=== PATIENT | male | born 1995 | race Two or more races ===

== ENCOUNTER 2018-03-21 16:16 | Emergency (ER) | payer MEDICAID ==
[~2018-03-21] VITALS: Ht 180.3 cm; Wt 81.6 kg
[2018-03-21 18:56] VITALS: BP 134/87
[2018-03-21] MEDS ORDERED: cefTRIAXone SOD 1,000 MG VL IM ONE (19:30)
== END 2018-03-21 19:25 | disposition home or self-care (01) ==
LOC: ER 16:16
DX: H66.42 Suppurative otitis media, unspecified, left ear (principal)

== ENCOUNTER 2018-03-26 10:33 | Emergency (ER) | payer OTHER, MEDICAID ==
[~2018-03-26] VITALS: Ht 177.8 cm; Wt 81.6 kg
[2018-03-26 10:44] VITALS: BP 131/81
[2018-03-26] MEDS ORDERED: LIDOCAINE 1% HCL (LOCAL ANESTH.) INJ 20ML MDV ID ONE (13:00)
== END 2018-03-26 13:42 | disposition home or self-care (01) ==
LOC: ER 10:33
DX: H60.02 Abscess of left external ear (principal)
CPT/HCPCS: 69000; 99283; J2001

== ENCOUNTER 2018-03-28 07:31 | Emergency (ER) | payer OTHER, MEDICAID ==
[~2018-03-28] VITALS: Ht 177.8 cm; Wt 81.6 kg
[2018-03-28 07:37] VITALS: BP 122/72
== END 2018-03-28 10:11 | disposition home or self-care (01) ==
LOC: ER 07:31
DX: H66.42 Suppurative otitis media, unspecified, left ear (principal); Z48.01 Encounter for change or removal of surgical wound dressing

== ENCOUNTER 2018-12-31 18:34 | Emergency (ER) | payer MEDICAID ==
[~2018-12-31] VITALS: Ht 177.8 cm; Wt 83.9 kg
[2018-12-31 18:47] VITALS: BP 140/76
[2018-12-31] MEDS ORDERED: LIDOCAINE 1% HCL (LOCAL ANESTH.) INJ 20ML MDV ONE (20:10)
[2018-12-31] MEDS ORDERED: LIDOCAINE 1% HCL (LOCAL ANESTH.) INJ 20ML MDV IJ ONE (20:15)
== END 2019-01-01 02:32 | disposition home or self-care (01) ==
LOC: ER 18:40
DX: L72.8 Other follicular cysts of the skin and subcutaneous tissue (principal)
CPT/HCPCS: 10060; 99283; J2001

== ENCOUNTER 2019-01-06 10:30 | Emergency (ER) | payer MEDICAID ==
[~2019-01-06] VITALS: Ht 177.8 cm; Wt 86.2 kg
[2019-01-06 10:35] VITALS: BP 128/74
[2019-01-06] MEDS ORDERED: BACITRACIN TOP OINT 1 UD PKG TOP ONE (11:30)
[2019-01-06] MEDS ORDERED: LIDOCAINE 1% (LOCAL ANESTH.) PF 5ml SDV ID ONE (11:30)
== END 2019-01-06 12:23 | disposition home or self-care (01) ==
LOC: ER 10:30
DX: S01.312A Laceration without foreign body of left ear, initial encounter (principal); Z48.02 Encounter for removal of sutures; W45.8XXA Other foreign body or object entering through skin, initial encounter; Y93.89 Activity, other specified; Y92.89 Other specified places as the place of occurrence of the external cause; Y99.8 Other external cause status

== ENCOUNTER 2019-01-17 09:33 | Emergency (ER) | payer MEDICAID ==
[~2019-01-17] VITALS: Ht 177.8 cm; Wt 88.5 kg
[2019-01-17 09:52] VITALS: BP 133/73
== END 2019-01-17 10:16 | disposition home or self-care (01) ==
LOC: ER 09:33
DX: S01.312D Laceration without foreign body of left ear, subsequent encounter (principal); Z48.02 Encounter for removal of sutures; X58.XXXD Exposure to other specified factors, subsequent encounter

== ENCOUNTER 2019-08-12 08:27 | Emergency (ER) | payer MEDICAID ==
[~2019-08-12] VITALS: Ht 177.8 cm; Wt 86.2 kg
[2019-08-12 08:44] VITALS: BP 138/86
== END 2019-08-12 09:28 | disposition home or self-care (01) ==
LOC: ER 08:27
DX: Q18.1 Preauricular sinus and cyst (principal)

== ENCOUNTER 2019-08-20 08:48 | Emergency (ER) | payer MEDICAID ==
[~2019-08-20] VITALS: Ht 177.8 cm; Wt 86.2 kg
[2019-08-20 08:53] VITALS: BP 146/74
[2019-08-20] MEDS ORDERED: LIDOCAINE 1% HCL (LOCAL ANESTH.) INJ 20ML MDV IJ ONE (09:45)
== END 2019-08-20 10:08 | disposition home or self-care (01) ==
LOC: ER 08:48
DX: H60.02 Abscess of left external ear (principal)
CPT/HCPCS: 10060; 99282; J2001